=== PATIENT | female | born 1955 | race Caucasian/White ===

== ENCOUNTER → 2017-02-05 | Outpatient (REF) | payer OTHER ==
[~2017-02-05] MED LIST: ASPI81TA85 PO; ATEN25TA PO; ATOR1TAB18 PO; LEVO125T41 PO; LOSA50TA20 PO; NITR4TASL SL; VITA200016 PO
== END ==
LOC: M SFHCWAGY 11:10
PROVIDERS: ATTEND Nurse Practitioner Women's Health
DX: Z12.4 Encounter for screening for malignant neoplasm of cervix (principal); Z12.31 Encounter for screening mammogram for malignant neoplasm of breast

== ENCOUNTER → 2017-02-05 | Outpatient (CLI) | payer OTHER ==
--- NOTE | 2017-02-05 13:06 | REP ---
BILATERAL DIGITAL SCREENING MAMMOGRAM: 02/05/2017. Clinical history: Screening examination. She has no current complaint, personal or family history of breast cancer. Comparison: 06/20/2015, 08/26/2013, 08/12/2012 mammogram. Findings. There are a few scattered fibroglandular elements which may obscure a lesion. Pattern and distribution is unchanged from multiple prior studies. A few benign coarse calcifications are seen. Scattered lymph nodes are seen in the axilla. In the deep central left breast toward the lower outer quadrant is a small oval nodule previously stable now slightly larger measuring up to 7 mm. There are no other significant findings or interval changes. There is no dominant mass, architectural distortion or secondary signs of malignancy. No skin thickening. Impression: 1. BIRADS category 0, incomplete, needs additional imaging. The patient should return for spot magnified and CC views of the left breast deep central and left lower outer quadrant region. Ultrasound should also be performed at that time for any persistent nodular finding. BI-RADS/ACR category 0 mammogram. Incomplete: Additional imaging and/or prior images are needed before a final assessment can be assigned. This mammogram was interpreted with the aid of an FDA-approved computer-aided detection system. A. Negative x-ray reports should not delay biopsy if a dominant or clinically suspicious mass is present. B. Four to eight percent of cancers are not identified by x-ray. C. Adenosis and dense breasts may obscure an underlying neoplasm. The patient states she had a clinical breast exam in 01/2017. The patient letter being requested is M0. Signed by Alf Carter MD 02/05/2017 05:07 P
== END ==
LOC: M WHC 11:28
PROVIDERS: ATTEND Nurse Practitioner Women's Health
DX: Z12.31 Encounter for screening mammogram for malignant neoplasm of breast (principal); Z12.4 Encounter for screening for malignant neoplasm of cervix

== ENCOUNTER → 2017-02-08 | Outpatient (CLI) | payer OTHER ==
--- NOTE | 2017-02-08 12:10 | REP ---
LEFT BREAST ULTRASOUND: 02/08/2017 CLINICAL HISTORY: Screening and diagnostic mammogram shows nodular area of 3-o'clock position lower outer quadrant. COMPARISON: Diagnostic mammogram today, screening mammogram 02/05/2017, 06/20/2015, 08/26/2013. FINDINGS: Sonographic evaluation of the lower outer quadrant of the left breast in the 3-o'clock to 6-o'clock position performed. In the area of the nodule at 3-o'clock position on mammogram ultrasound defines a 6.5 x 5.1 x 4.1 mm simple cyst. This is about 3.8 cm from the nipple. There are no suspicious characteristics and no other findings in the breast parenchyma. IMPRESSION: 1. A 6.5 x 5.1 mm simple cyst at 3- o'clock position lower outer quadrant left breast corresponding in size and location to the mammogram this date. Please see mammogram report for final assessment and recommendation. Signed by Alf Carter MD 02/08/2017 08:10 P
--- NOTE | 2017-02-08 12:16 | REP ---
DIAGNOSTIC DIGITAL LEFT MAMMOGRAM: 02/08/2017. Comparison: Left breast ultrasound 02/08/2017, bilateral screening mammogram 02/05/2017, 06/20/2015, 08/26/2013. Clinical history: Screening mammogram showed nodular density deep central breast in the lower outer quadrant at about 3 o'clock position. Spot magnified CC, exaggerated CC, ML and spot magnified ML images were obtained. These confirm the presence of a deep lower outer quadrant nodule at about the 3 to 4 o'clock position. It has fairly smooth margins. No abnormal calcifications and no other findings. The left breast ultrasound this date demonstrated a simple cyst measuring 6.5 x 5.1 x 4.1 cm and about 3.8 cm from nipple corresponding in size and location to the mammographic finding. Impression: 1. ACR BIRADS category II, benign. Benign finding. No evidence of malignancy. Mammographic finding is proven to be a simple cyst on ultrasound today. 2. Recommend followup mammography in 1 year. This mammogram was interpreted with the aid of an FDA-approved computer-aided detection system. The patient states she/he had a clinical breast exam in 01/2017. The patient letter being requested is M1. Signed by Alf Carter MD 02/08/2017 08:10 P
== END ==
LOC: M RAD 10:37
PROVIDERS: ATTEND Nurse Practitioner Women's Health
DX: R92.8 Other abnormal and inconclusive findings on diagnostic imaging of breast (principal); N60.02 Solitary cyst of left breast
CPT/HCPCS: 76642; G0206

== ENCOUNTER → 2017-08-07 | Outpatient (CLI) | payer OTHER ==
[~2017-08-07] MED LIST changes: -ATOR1TAB18 PO; +ATOR80TA59 PO
[2017-08-07 12:25] LABS: ALBUMIN 4.1 GM/DL (3.2-5.2); ALBUMIN/GLOBULIN RATIO 1.37 (1.00-1.93); ALKALINE PHOSPHATASE 60 U/L (45-117); ALT/SGPT 49 U/L (12-78); ANION GAP 5 MEQ/L (8-16); AST/SGOT 25 U/L (15-37); BILIRUBIN,TOTAL 0.4 MG/DL (0.2-1.0); BLOOD UREA NITROGEN 15 MG/DL (7-18); CALCIUM LEVEL 9.4 MG/DL (8.8-10.2); CARBON DIOXIDE LEVEL 29 MEQ/L (21-32); CHLORIDE LEVEL 108 MEQ/L (98-107); CHOLESTEROL LEVEL 159 MG/DL (<200); CREATININE FOR GFR 0.87 MG/DL (0.55-1.02); GLOMERULAR FILTRATION RATE > 60.0 (>45); GLUCOSE, FASTING 124 MG/DL (80-110); SODIUM LEVEL 142 MEQ/L (136-145); TOTAL PROTEIN 7.1 GM/DL (6.4-8.2); TRIGLYCERIDES LEVEL 182 MG/DL (<150)
== END ==
LOC: M LRY 09:38
PROVIDERS: ATTEND Physician Assistant
DX: I25.10 Atherosclerotic heart disease of native coronary artery without angina pectoris (principal); I11.9 Hypertensive heart disease without heart failure; E78.2 Mixed hyperlipidemia

== ENCOUNTER → 2018-04-14 | Outpatient (CLI) | payer OTHER | LOC: M WHC 08:42 | DX: Z12.31 Encounter for screening mammogram for malignant neoplasm of breast (principal); Z78.0 Asymptomatic menopausal state | CPT/HCPCS: 77067 ==

== ENCOUNTER → 2018-04-14 | Outpatient (REF) | payer OTHER | LOC: M SFHCWAGY 09:00 | DX: Z12.4 Encounter for screening for malignant neoplasm of cervix (principal); N95.2 Postmenopausal atrophic vaginitis | CPT/HCPCS: G0123 ==

== ENCOUNTER → 2019-04-10 | Outpatient (CLI) | payer OTHER ==
[~2019-04-10] MED LIST changes: -LOSA50TA20 PO; +LOSA50TA88 PO
--- NOTE | 2019-04-10 13:32 | REP ---
LEFT KNEE, FIVE VIEWS: HISTORY: Knee pain. There is no acute fracture or dislocation. There is minimal narrowing of the medial knee joint space. The lateral knee joint space and patellofemoral joint space are normal in appearance. IMPRESSION: There is no acute fracture or dislocation. Electronically Signed by Jayy Brady MD 04/10/2019 01:34 P
== END ==
LOC: M LRY 12:15
PROVIDERS: ATTEND Physician Assistant
DX: M25.562 Pain in left knee (principal)

== ENCOUNTER → 2019-05-07 | Outpatient (CLI) | payer OTHER ==
--- NOTE | 2019-05-07 09:26 | REP ---
BILATERAL SCREENING DIGITAL MAMMOGRAM WITH 3D TOMOSYNTHESIS: There are no palpable abnormalities or other breast complaints.The patient states she had a clinical breast examination 04/30/2019.The patient states she performs self-breast examinations 12 times per year.e Tyrer-Cuzick Score is: 8.8% Comparison studies are 04/14/2018 and 06/20/2015. There are scattered areas of fibroglandular density.There is no dominant mass, micro calcific cluster or architectural distortion that would indicate malignancy.There are no additional findings on 3D tomosynthesis.There is no change from the prior study. Impression:BIRADS/ACR category 1 mammogram. Negative. Recommendation:Routine annual screening mammography. This mammogram was interpreted with the aid of a FDA approved computer-aided detection system. A. Negative mammogram reports should not delay biopsy if a dominant or clinically suspicious mass is present.B. Not all breast cancers are identified by mammography or tomosynthesis.C. Adenosis and dense breasts may obscure an underlying neoplasm. Patient letter M1.
== END ==
LOC: M WHC 08:07
PROVIDERS: ATTEND Nurse Practitioner Women's Health
DX: Z12.31 Encounter for screening mammogram for malignant neoplasm of breast (principal)

== ENCOUNTER → 2021-04-20 | Outpatient (REF) | payer MEDICARE, OTHER ==
[~2021-04-20] MED LIST changes: -ASPI81TA85 PO; +ASPI81TA86 PO
== END ==
LOC: M SFHCWAGY 13:52
PROVIDERS: ATTEND Nurse Practitioner Women's Health
DX: Z12.4 Encounter for screening for malignant neoplasm of cervix (principal); N95.2 Postmenopausal atrophic vaginitis

== ENCOUNTER → 2021-04-20 | Outpatient (CLI) | payer MEDICARE, OTHER ==
--- NOTE | 2021-04-20 12:14 | REPMRS ---
Patient History The patient states she had a clinical breast exam in April 2021. No known family history of cancer. Patient states no breast complaints today. Patient has signed MRS History Sheet. Digital Woman Screen Mammo: April 20, 2021 - Exam #: [id number] Bilateral CC and MLO view(s) were taken. Technologist: Mayte Hernandez, Technologist Prior study comparison: May 07, 2019, bilateral digital woman screen mammo performed at [facility]. April 14, 2018, digital woman screen mammo performed at [facility]. FINDINGS: There are scattered fibroglandular densities. Screening. Digital screening (2D) mammography was performed bilaterally in the CC and MLO projections. Additionally, breast tomosynthesis (3D mammography) was performed bilaterally in the CC and MLO projections. Todays exam was compared to the prior exam/exams. By history, the patient has no complaints of a palpable breast abnormality or other significant breast complaints. The breasts are unchanged in size and shape. There are no sander-soft tissue densities or spiculated masses. There is no internal architectural distortion. Once again, stable benign appearing calcifications are seen.There are no suspicious sander-calcific clusters. Skin thickening or nipple retraction is not present. IMPRESSION: BI-RADS Category 2- Benign Findings. There is no evidence of malignant alteration of the breasts. Followup examination recommended in one year. The Volpara volumetric breast density category is B, there are scattered areas of fibroglandular density. This mammogram was read with the assistance of [employer],an FDA approved computer aided detection system for mammography. The lifetime Tyrer-Cuzick score is 8.1 % Negative x-ray reports should not delay surgical consultation if a dominant or clinically suspicious mass is present. Not all breast cancers can be identified by mammography. Therefore, we recommend that you continue to perform regular breast self-examination and physical examination and then promptly contact your physician of any concerns or changes. Adenosis and dense breasts may obscure an underlying neoplasm. Assessment: BI-RADS/ACR category 2 mammogram. Benign Findings. Recommendation Routine screening mammogram of both breasts in 1 year. Electronically Signed By: Duke Bach DO 04/20/21 [id number]
== END ==
LOC: M WHC 10:39
PROVIDERS: ATTEND Nurse Practitioner Women's Health
DX: Z01.419 Encounter for gynecological examination (general) (routine) without abnormal findings (principal); Z12.31 Encounter for screening mammogram for malignant neoplasm of breast; R92.1 Mammographic calcification found on diagnostic imaging of breast; N95.2 Postmenopausal atrophic vaginitis
CPT/HCPCS: 77063; 77067; G0101; G0123

== ENCOUNTER → 2022-05-02 | Outpatient (CLI) | payer MEDICARE, OTHER ==
[~2022-05-02] MED LIST changes: +LOSA50TA28 PO; -LOSA50TA88 PO
== END ==
LOC: M WHC 13:25
PROVIDERS: ATTEND Internal Medicine
DX: Z12.31 Encounter for screening mammogram for malignant neoplasm of breast (principal)

== ENCOUNTER → 2022-05-15 | Outpatient (CLI) | payer MEDICARE, OTHER | LOC: M WHC 08:33 | PROVIDERS: ATTEND Internal Medicine | DX: N63.21 Unspecified lump in the left breast, upper outer quadrant (principal) | CPT/HCPCS: 77065; G0279 ==

== ENCOUNTER → 2023-08-22 | Outpatient (CLI) | payer MEDICARE, OTHER | LOC: M WHC 10:50 | PROVIDERS: ATTEND Internal Medicine | DX: E03.9 Hypothyroidism, unspecified (principal); M25.561 Pain in right knee; M81.0 Age-related osteoporosis without current pathological fracture ==

== ENCOUNTER → 2024-09-08 | Outpatient (CLI) | payer MEDICARE, OTHER | LOC: M WHC 12:49 | PROVIDERS: ATTEND Internal Medicine | DX: Z12.31 Encounter for screening mammogram for malignant neoplasm of breast (principal) ==

== ENCOUNTER → 2025-03-05 | Outpatient (CLI) | payer MEDICARE, OTHER | LOC: M WHC 09:12 | PROVIDERS: ATTEND Internal Medicine | DX: N28.9 Disorder of kidney and ureter, unspecified (principal); R94.4 Abnormal results of kidney function studies ==

== ENCOUNTER → 2025-06-14 | Outpatient (CLI) | payer MEDICARE, OTHER ==
[2025-06-14 13:33] LABS: APPEARANCE, URINE HAZY (CLEAR); BACTERIA, URINE AUTO NEGATIVE (NEGATIVE); BILIRUBIN, URINE AUTO NEGATIVE (NEGATIVE); BLOOD, URINE BLOOD 1+ (NEGATIVE); GLUCOSE, URINE (UA) AUTO 3+ mg/dL (NEGATIVE); KETONE, URINE AUTO NEGATIVE (NEGATIVE); LEUKOCYTE ESTERASE, URINE AUTO NEGATIVE (NEGATIVE); MUCUS, URINE SMALL (NEGATIVE); NITRITE, URINE AUTO NEGATIVE (NEGATIVE); PROTEIN, URINE AUTO NEGATIVE (NEGATIVE); RBC, URINE AUTO 3 /HPF (0-3); SPECIFIC GRAVITY URINE AUTO 1.018 (1.002-1.035); SQUAMOUS EPITHELIAL CELL UR AU 1 /HPF (0-6); UROBILINOGEN, URINE AUTO 0.2 mg/dL (0.0-2.0); WBC, URINE AUTO 0 /HPF (0-3)
[2025-06-14 14:10] LABS: PLATELET COUNT, AUTOMATED 134 10^3/uL (150-450)
[2025-06-14 14:32] LABS: ALT/SGPT 110 U/L (7.0-40); AST/SGOT 126 U/L (<34)
[2025-06-14 15:00] LABS: ATYPICAL LYMPH 8 % (0-5); EOSINOPHILS 1 % (0-3); LYMPHOCYTES 29 % (16-44); MONOCYTES 7 % (0-5); NEUTROPHILS 55 % (28-66); PLATELET ESTIMATE NORMAL (NORMAL)
[2025-06-14 15:09] LABS: HEPATITIS C VIRUS ABY INDEX 0.03 INDEX (<0.8)
[2025-06-17 19:57] LABS: LYME TOTAL ANTIBODY CIA <= 0.90 Index (<=0.90)
[2025-06-18 03:58] LABS: BORRELIA SPECIES DNA NOT DETECTED (NOT DETECT)
== END ==
LOC: M LAB 11:39
PROVIDERS: ATTEND Internal Medicine
DX: R94.5 Abnormal results of liver function studies (principal)